=== PATIENT | male | born 2000 | race Two or more races ===

== ENCOUNTER 2025-04-18 16:25 | Emergency (ER) | payer BC ==
[2025-04-18] MEDS: Take Home: LORazepam 0.5 MG Tab, 2 Tab Pack PO ONE (18:22)
== END 2025-04-18 18:26 | disposition home or self-care (01) ==
LOC: VM.ED 16:25
DX: F41.0 Panic disorder [episodic paroxysmal anxiety] (principal); Z88.2 Allergy status to sulfonamides
CPT/HCPCS: 99283; 99284; A9270-GY